=== PATIENT | female | born 1990 | race Hispanic/Latino ===

== ENCOUNTER 2017-05-04 06:05 | Day surgery (SDC) | payer BC ==
[2017-04-29 10:36] VITALS: BMI 34.9
[2017-05-04] MEDS ORDERED: Bupivacaine HCl 0.25% PF (10 ml) Inj ONE (07:40)
[2017-05-04] MEDS ORDERED: ceFAZolin IV 1 gm in Dextrose 2 GM/100 ML BAG IVPB ONE (07:40)
[2017-05-04] MEDS ORDERED: Midazolam 2 MG/2 ML VIAL ONE (07:59)
[2017-05-04] MEDS ORDERED: Propofol 10 mg/ml Inj (20 ML) ONE (07:59)
[2017-05-04] MEDS ORDERED: Rocuronium 10 mg/ml (5 ml) ONE (09:17)
[2017-05-04] MEDS ORDERED: Neostigmine Methylsulfate 3mg/3ml Syringe IV ONE (09:22)
--- NOTE | 2017-05-04 09:35 | PCM.SURG1 ---
Surgeon's Initial Post Op Note - Surgeon's Notes Surgeon: dr yeung Shale Planer Operator: dr rodríguez Type of Anesthesia: General LMA Anesthesia Administered By: dr monk Pre-Operative Diagnosis: 27 yr with b/l ovarian cyst Operative Findings: right ovarian cyst and left ovarian cyst Post-Operative Diagnosis: same Operation Performed: laproscopic right ovaranic cystectomy and left ovarian drainage Specimen/Specimens Removed: right ovarian cyst and wall Estimated Blood Loss: EBL {In ML}: 50 Blood Products Given: N/A Drains Used: No Drains Post-Op Condition: Good Date of Surgery/Procedure: 05/04/17 Time of Surgery/Procedure: 10:00
[2017-05-04] MEDS ORDERED: HYDROmorphone 0.5 mg/0.5 ml ISec IVP PRN (09:40)
[2017-05-04] MEDS ORDERED: Albuterol 0.083% Inhal Sol (2.5 mg/3 mL) UD INH ONE (09:45)
[2017-05-04] MEDS ORDERED: HYDROmorphone 0.5 mg/0.5 ml ISec ONE (09:48)
[2017-05-04 10:09] VITALS: O2SAT 100
[2017-05-04] MEDS ORDERED: Lactated Ringer's 1,000 ML IV ONE (11:00)
[2017-05-04 11:42] VITALS: RESP 16
[2017-05-04 13:21] VITALS: BP 117/62; PULSE 75; TEMP 97.5
--- NOTE | 2017-05-05 11:01 | OP ---
PROCEDURE DATE: 05/04/2017 PREOPERATIVE DIAGNOSIS: A 27-year-old 0, para 0 with bilateral ovarian cyst. POSTOPERATIVE DIAGNOSIS: A 27-year-old 0, para 0 with bilateral ovarian cyst. SURGEON: Adrian Jones MD TYPE OF ANESTHESIA: General anesthesia. MARKETING TECHNOLOGY SPECIALIST SURGEON: Dr. Mo Phoenix, who was present throughout the surgery. COMPLICATIONS: None. ESTIMATED BLOOD LOSS: 250 mL. PROCEDURE PERFORMED: Laparoscopic right ovarian cystectomy and drainage of the left ovarian cyst. DESCRIPTION OF PROCEDURE: After informed consent was obtained, the patient was brought to the operating room, placed on the table where general anesthesia was given. Once the anesthesia was given, she was prepped and draped in normal sterile fashion. Examination under anesthesia found uterus to be 8 week size. No pelvic or adnexal masses. Anterior lip of the cervix was grasped with a tenaculum. Gentle dilatation of the cervix was done. Then the HUMI catheter was inserted. Then, after the Willard catheter was then inserted under sterile condition. After that, attention was turned towards the patient's abdomen and Marcaine was given. Incision was made on the patient's abdomen. After that, the fascia was lifted with two Kochers, it cut and then it was held up with 2-0 sutures, then the peritoneum was lifted with the It was cut and we went into the abdominal cavity. Intraabdominal placement was confirmed with the gas. With the camera, we went into abdomen where we found a cyst on the right ovarian site which is 4 to 5 cm simple cyst, and on the other side, there is a small cyst on the left side. Pictures were taken. coagulated. The cyst was opened up and then cystectomy was done using LigaSure, and the cyst was removed, it was sent for pathology. Lot of irrigation was done and found to be hemostatic, then the coagulation was it was hemostatic. Then the same thing was done on the ____ from the right ovarian cyst. After a lot of irrigation was done, the patient was hemostatic. No bleeding and all the ports were removed. on the left side and right side. all the ports were removed. The fascia was closed using 2-0 Vicryl in interrupted fashion. Skin was closed using 3-0 Monocryl. Willard catheter and HUMI catheter were removed. The patient tolerated the procedure well. Laps, sponge, and instruments counts were correct x2. Adrian Jones MD
== END 2017-05-04 13:15 | disposition home or self-care (01) ==
LOC: C.SDS 06:05
PROVIDERS: ATTEND Obstetrics & Gynecology
DX: R19.00 Intra-abdominal and pelvic swelling, mass and lump, unspecified site (principal); N83.292 Other ovarian cyst, left side; N83.291 Other ovarian cyst, right side
CPT/HCPCS: 58662; 58679; 88304; C2615; J1100; J1170; J2001; J2250; J2405; J2704; J2710; J3010; J7120